=== PATIENT | male | born 1970 | race Hispanic/Latino ===

== ENCOUNTER 2018-08-27 13:06 | Emergency (ER) | payer MEDICARE, OTHER ==
[~2018-08-27] VITALS: Ht 182.9 cm; Wt 99.8 kg
[~2018-08-27 13:06] MED LIST: AMLODIPINE BESYL5 MG PO; ARMOUR THYROID60 MG PO; AZOPT10 ML; BACTRIM DS1 EA PO; COMBIGAN EYE DRO5 ML; DIAMOX SEQUELS500 MG PO; FUROSEMIDE40 MG PO; HYDROCODONE-AP1 EA13 PO; LEVOTHYROXINE100 MC1 PO; LISINOPRIL10 MG PO; METFORMIN HCL500 MG PO; METOPROLOL TART50 MG PO; POTASSIUM CHLO10 ME1 PO; PRILOSEC OTC20 MG PO; TRADJENTA5 MG PO; TYLENOL EXTRA500 MG PO
--- OUTSIDE RECORDS SUMMARY | 2018-08-27 13:10 | XMS REPORT ---
Author Author [facility] Address Unknown Phone Unavailable Care Team Providers Care President Ceo & Founder Name Role Phone Unavailable Unavailable Problems This patient has no known problems. Allergies, Adverse Reactions, Alerts This patient has no known allergies or adverse reactions. Medications This patient has no known medications. Encounters Start Date/Time End Date/Time Encounter Type Admission Type Attending Clinicians [facility] Care Department Encounter ID 2018-08-15 15:24:08 Outpatient [id number]
--- NOTE | 2018-08-27 14:48 | Diagnostic Imaging Report ---
EXAM: CHEST SINGLE (PORTABLE) DATE: 08/27/2018 1:52 PM INDICATION: ^ABD/R FLANK PAIN ^[id number] ^1400 COMPARISON: Chest x-ray, 12/01/2012 (images only, report unavailable on PACS) FINDINGS: Lines and tubes: None Heart size normal. No focal pulmonary opacity, pleural effusion or pneumothorax. Upper abdomen unremarkable. No acute bony abnormality. IMPRESSION: No evidence for acute disease. Signed by: Dr. Jorge L Oliva M.D. on 08/27/2018 2:44 PM
--- NOTE | 2018-08-27 14:57 | NUR ---
PATIENT BROUGHT TO ROOM 4
--- NOTE | 2018-08-27 15:12 | Diagnostic Imaging Report ---
EXAM: CT Abdomen and Pelvis WITHOUT contrast INDICATION: ^Stone Protocol, RIGHT FLANK PAIN, ESRD ^[id number] ^1400 ^Y COMPARISON: None. TECHNIQUE: Abdomen and pelvis were scanned utilizing a multidetector helical scanner from the lung base to the pubic symphysis without administration of IV contrast. Absence of intravenous contrast decreases sensitivity for detection of focal lesions and vascular pathology. Coronal and sagittal reformations were obtained. Renal stone protocol was performed. Dose modulation, iterative reconstruction, and/or weight based adjustment of the mA/kV was utilized to reduce the radiation dose to as low as reasonably achievable. IV CONTRAST: None. ORAL CONTRAST: None RADIATION DOSE: Total DLP: 712.35 mGy*cm Estimated effective dose: (DLP x 0.015 x size factor) mSv COMPLICATIONS: None FINDINGS: LINES and TUBES: None. LOWER THORAX: There is groundglass opacity in the right middle lobe. Bilateral perihilar bronchial wall thickening noted. Heart size normal with extensive coronary artery calcification seen. Calcification of the mitral annulus is noted. HEPATOBILIARY: No focal hepatic lesions. No biliary ductal dilation. GALLBLADDER: Surgical absence of the gallbladder with cholecystectomy clips. SPLEEN: No splenomegaly. PANCREAS: No focal masses or ductal dilatation. ADRENALS: No adrenal nodules KIDNEYS/URETERS: No hydronephrosis. No cystic or solid mass lesions. There are numerous punctate 2 to 5 mm nonobstructing intrarenal calculi bilaterally. Some central renal calcifications are also vascular. No ureteral calculus is seen. GI TRACT: No abnormal distention, wall thickening, or evidence of bowel obstruction. There is a large amount of debris is present in the stomach. Appendix is normal. An appendicolith is present. PELVIC ORGANS/BLADDER: Urinary bladder appears unremarkable. No discrete abnormal mass or fluid collection in the pelvis. LYMPH NODES: No dominant lymph node mass is seen in the abdomen, retroperitoneum or pelvis. VESSELS: There is extensive atherosclerotic calcified plaque in the aortoiliac vessels and branch vessels throughout the abdomen and pelvis. No abdominal aortic aneurysm. PERITONEUM / RETROPERITONEUM: No pneumoperitoneum or ascites. BONES: No acute or suspicious bony lesions. SOFT TISSUES: Superficial surrounding soft tissue shows a small right inguinal hernia containing fat. IMPRESSION: 1. No hydronephrosis. There are numerous bilateral small nonobstructing intrarenal calculi. No ureteral calculus is seen. 2. Extensive atherosclerotic calcified plaque in the aortoiliac vessels and branch vessels throughout the abdomen and pelvis. Coronary artery calcifications are seen. Staff: Pj Signed by: Dr. Jorge L Oliva M.D. on 08/27/2018 3:09 PM
[2018-08-27 15:35] LABS: BASOPHILS # (AUTO) 0.1 (0.0-0.1); BASOPHILS % 0.6 % (0.0-1.0); EOSINOPHILS # (AUTO) 0.7 (0.0-0.4); EOSINOPHILS % 8.4 % (0.0-6.0); HEMATOCRIT 35.8 % (38.2-49.6); HEMOGLOBIN 12.2 g/dL (14.0-18.0); LYMPHOCYTES # (AUTO) 1.9 (1.0-3.2); LYMPHOCYTES % 21.5 % (18.0-39.1); MEAN CORPUSCULAR HEMOGLOBIN 30.7 pg (28-32); MEAN CORPUSCULAR HGB CONC 34.1 g/dL (31-35); MEAN CORPUSCULAR VOLUME 89.9 fL (81-99); MONOCYTES # (AUTO) 0.5 (0.2-0.8); MONOCYTES % 6.3 % (4.4-11.3); NEUTROPHILS # (AUTO) 5.4 (2.1-6.9); NEUTROPHILS % 62.9 % (38.7-80.0); PLATELET COUNT 175 x10e3/uL (140-360); RED BLOOD COUNT 3.98 x10e6/uL (4.3-5.7); RED CELL DISTRIBUTION WIDTH 13.7 % (11.7-14.4)
[2018-08-27 15:56] LABS: ALBUMIN 3.7 g/dL (3.5-5.0); ALBUMIN/GLOBULIN RATIO 0.9 (0.8-2.0); ANION GAP 18.9 mmol/L (8-16); CALCIUM 10.2 mg/dL (8.4-10.2); CREATININE, SERUM 10.46 mg/dL (0.72-1.25); POTASSIUM 3.9 mmol/L (3.5-5.1)
--- NOTE | 2018-08-27 18:15 | NUR ---
PATIENT TRANSPORTED VIA [facility]
== END 2018-08-27 18:15 | disposition home or self-care (01) ==
LOC: ER 13:06
DX: R10.9 Unspecified abdominal pain (principal); M54.5 Low back pain; E11.22 Type 2 diabetes mellitus with diabetic chronic kidney disease; N18.6 End stage renal disease; Z99.2 Dependence on renal dialysis; Z89.512 Acquired absence of left leg below knee
CPT/HCPCS: 36415; 71045; 74176; 80053; 83690; 85025; 99284